=== PATIENT | female | born 1980 | race Caucasian/White ===

== ENCOUNTER 2020-03-16 08:30 | Outpatient (REF) | payer OTHER, SELFPAY | END 2020-03-16 08:31 | disposition home or self-care (01) | LOC: HO.LAB 08:30 | PROVIDERS: PCP Internal Medicine Sports Medicine; Visit Provider Internal Medicine | DX: Z20.828 Contact with and (suspected) exposure to other viral communicable diseases (principal) | CPT/HCPCS: 87635 ==